=== PATIENT | male | born 1980 | race African-American/Black ===

== ENCOUNTER 2019-05-14 10:56 | Emergency (ER) | payer BC, MEDICAID ==
[~2019-05-14] VITALS: Ht 165.1 cm; Wt 84.0 kg
[~2019-05-14 10:56] MED LIST: [UNRECOGNIZED DRUG - REMARK]
[2019-05-14] MEDS ORDERED: PENICILLIN G BENZATHINE 2,400,000 UNITS/4ML SYR IM ONE (13:00)
[2019-05-14 13:35] VITALS: BP 110/76
== END 2019-05-14 13:30 | disposition left against medical advice (07) ==
LOC: ER 10:56
DX: A51.49 Other secondary syphilitic conditions (principal); F17.200 Nicotine dependence, unspecified, uncomplicated
CPT/HCPCS: 96372; 99283; J0561

== ENCOUNTER 2019-08-29 19:00 | Emergency (ER) | payer BC, MEDICAID ==
[~2019-08-29] VITALS: Ht 162.6 cm; Wt 80.0 kg
[2019-08-29 21:42] VITALS: BP 157/102
[2019-08-29] MEDS ORDERED: TETRACAINE 0.5% OPHTH DROPS 4ML RIGHTEYE ONE (22:15)
[2019-08-29] MEDS ORDERED: FLUORESCEIN SODIUM 1MG/STRIP RIGHTEYE ONE (22:15)
== END 2019-08-29 23:10 | disposition home or self-care (01) ==
LOC: ER 19:00
DX: H10.32 Unspecified acute conjunctivitis, left eye (principal); H01.00B Unspecified blepharitis left eye, upper and lower eyelids
CPT/HCPCS: 99283

== ENCOUNTER 2019-09-07 14:35 | Emergency (ER) | payer BC, MEDICAID ==
[~2019-09-07] VITALS: Ht 162.6 cm; Wt 90.0 kg
[2019-09-07 15:01] VITALS: BP 147/98
[2019-09-07] MEDS ORDERED: TOBRAMYCIN 0.3% OPHTH DROPS 5ML OP SCH (16:00)
== END 2019-09-07 15:12 | disposition home or self-care (01) ==
LOC: ER 14:35
DX: H10.022 Other mucopurulent conjunctivitis, left eye (principal); F17.210 Nicotine dependence, cigarettes, uncomplicated
CPT/HCPCS: 99283

== ENCOUNTER 2019-10-24 21:12 | Emergency (ER) | payer BC, MEDICAID ==
[~2019-10-24] VITALS: Ht 162.6 cm; Wt 82.0 kg
[2019-10-24 21:26] VITALS: BP 159/78
[2019-10-24] MEDS ORDERED: BACITRACIN ZINC OINT UDPKT TOP ONE (22:15)
[2019-10-24] MEDS ORDERED: LIDOCAINE HCL/PF 1% 10 MG/ML 5ML VIAL IJ ONE (22:15)
== END 2019-10-24 23:15 | disposition left against medical advice (07) ==
LOC: ER 21:12
DX: S01.81XA Laceration without foreign body of other part of head, initial encounter (principal); W26.8XXA Contact with other sharp object(s), not elsewhere classified, initial encounter; Y93.89 Activity, other specified; Y92.89 Other specified places as the place of occurrence of the external cause; Y99.8 Other external cause status; F17.290 Nicotine dependence, other tobacco product, uncomplicated
CPT/HCPCS: 12015; 99283; Z7610

== ENCOUNTER 2019-10-30 19:02 | Emergency (ER) | payer BC, MEDICAID ==
[~2019-10-30] VITALS: Ht 162.6 cm; Wt 84.0 kg
[2019-10-30 19:52] VITALS: BP 154/104
== END 2019-10-30 20:08 | disposition home or self-care (01) ==
LOC: ER 19:02
DX: Z48.02 Encounter for removal of sutures (principal)
CPT/HCPCS: 99281

== ENCOUNTER 2021-11-29 07:35 | Emergency (ER) | payer BC, MEDICAID ==
[~2021-11-29] VITALS: Ht 172.7 cm; Wt 75.0 kg
[2021-11-29] MEDS ORDERED: TETANUS, DIPHTHERIA, PERTUSSIS VAC/PF 0.5ML (>10YR OLD) IM ONE (08:15)
[2021-11-29] MEDS ORDERED: IBUPROFEN 600MG TABLET PO ONE (08:15)
[2021-11-29] MEDS ORDERED: IBUP-2028 MT (09:28)
[2021-11-29 09:33] VITALS: BP 137/78
== END 2021-11-29 09:34 | disposition home or self-care (01) ==
LOC: ER 07:48
DX: S63.591A Other specified sprain of right wrist, initial encounter (principal); M25.511 Pain in right shoulder; Z88.0 Allergy status to penicillin; Y35.893A Legal intervention involving other specified means, suspect injured, initial encounter; Y93.89 Activity, other specified; Y92.89 Other specified places as the place of occurrence of the external cause
CPT/HCPCS: 29125; 73030; 73110; 90471; 90715; 99284

== ENCOUNTER 2022-01-01 11:14 | Emergency (ER) | payer OTHER ==
[~2022-01-01] VITALS: Ht 182.9 cm; Wt 72.0 kg
[~2022-01-01 11:14] MED LIST changes: +ACET650T37 MT; +HYDR-4001 MT; +IBUP-2028 MT; +LEVO750T46 MT; +MESA500C PO; +METR-167 MT; -[UNRECOGNIZED DRUG - REMARK]
[2022-01-01 14:37] LABS: EOSINOPHILS % 2.1 % (0.0-5.0); HEMATOCRIT. 41.3 % (42.0-52.0); HEMOGLOBIN. 14.2 g/dL (14.0-18.0); LYMPHOCYTES % 28.8 % (20.0-50.0); MEAN CORPUSCULAR HEMOGLOBIN 30.8 pg (28.0-32.0); MEAN CORPUSCULAR VOLUME 89.6 fL (80.0-94.0); MONOCYTES % 6.9 % (2.0-8.0); NEUTROPHILS % 61.2 % (40.0-76.0); PLATELET 458 x1000/uL (130-400); RED BLOOD CELL COUNT 4.61 mill/uL (4.7-6.1); RED CELL DISTRIBUTION WIDTH 15.6 % (11.6-14.6)
[2022-01-01] MEDS ORDERED: ONDANSETRON HCL 4MG/2ML INJ IV ONE (14:45)
[2022-01-01] MEDS ORDERED: MORPHINE SULFATE 4 MG/ML CPJ (NOT FOR IM USE) IV ONE (14:45)
[2022-01-01 14:49] LABS: CHLORIDE 109 mEq/L (98-107)
[2022-01-01] MEDS ORDERED: IOHEXOL-300 50 ML BOTTLE IV ONE (15:13)
[2022-01-01 16:42] VITALS: BP 123/81
== END 2022-01-01 16:48 | disposition home or self-care (01) ==
LOC: ER 11:14
DX: Z46.89 Encounter for fitting and adjustment of other specified devices (principal); Z88.0 Allergy status to penicillin; Z98.890 Other specified postprocedural states
CPT/HCPCS: 36415; 74176; 80053; 85025; 96374; 96375; 99284; J2270; J2405; Q9967

== ENCOUNTER 2022-01-04 17:27 | Emergency (ER) | payer OTHER ==
[~2022-01-04] VITALS: Ht 177.8 cm; Wt 73.0 kg
[2022-01-04] MEDS ORDERED: ONDANSETRON HCL 4MG/2ML INJ IV STA (17:40)
[2022-01-04] MEDS ORDERED: MORPHINE SULFATE 4 MG/ML CPJ (NOT FOR IM USE) IV STA (17:40)
[2022-01-04] MEDS ORDERED: SODIUM CHLORIDE 0.9% 1000ML BAG (SEPSIS BOLUS) IV ONE (17:45)
[2022-01-04 18:29] LABS: BASOPHILS % 0.9 % (0.0-2.0); EOSINOPHILS % 2.2 % (0.0-5.0); HEMATOCRIT. 39.3 % (42.0-52.0); HEMOGLOBIN. 13.6 g/dL (14.0-18.0); LYMPHOCYTES % 25.3 % (20.0-50.0); MEAN CORPUSCULAR VOLUME 89.7 fL (80.0-94.0); MEAN PLATELET VOLUME 7.2 fl (7.4-10.4); MONOCYTES % 5.6 % (2.0-8.0); PLATELET 394 x1000/uL (130-400); RED BLOOD CELL COUNT 4.38 mill/uL (4.7-6.1)
[2022-01-04 18:46] LABS: CHLORIDE 111 mEq/L (98-107)
[2022-01-04 18:51] LABS: ETHANOL BLOOD 226 mg/dL
[2022-01-04 18:55] LABS: CREATINE KINASE 260 IU/L (39-308)
[2022-01-04] MEDS ORDERED: IOHEXOL-300 100 ML BOTTLE ONE (19:43)
[2022-01-04] MEDS ORDERED: MORPHINE SULFATE 4 MG/ML CPJ (NOT FOR IM USE) IV ONE (20:00)
[2022-01-04 21:13] LABS: CLARITY URINE CLEAR (CLEAR); COLOR URINE YELLOW (YELLOW); KETONES URINE NEGATIVE (NEGATIVE); LEUKOCYTE ESTERASE URINE NEGATIVE (NEGATIVE); NITRITE URINE NEGATIVE (NEGATIVE); OCCULT BLOOD URINE NEGATIVE (NEGATIVE); PROTEIN URINE NEGATIVE (NEGATIVE); SPECIFIC GRAVITY URINE 1.026 (1.005-1.030); UROBILINOGEN URINE 0.2 E.U./dL (0.2-1.0)
[2022-01-04 21:30] LABS: *AMPHETAMINES SCREEN URINE PRESUMTIVE POSITIVE (NEGATIVE); *BARBITURATES SCREEN URINE NEGATIVE (NEGATIVE); *BENZODIAZEPINES SCREEN URINE NEGATIVE (NEGATIVE); *COCAINE SCREEN URINE NEGATIVE (NEGATIVE)
[2022-01-04 21:31] LABS: CANNABINOID URINE SCREEN NEGATIVE (NEGATIVE); METHADONE URINE SCREEN NEGATIVE (NEGATIVE); OPIATES URINE SCREEN PRESUMTIVE POSITIVE (NEGATIVE); PHENCYCLIDINE URINE SCREEN NEGATIVE (NEGATIVE)
[2022-01-04 22:00] VITALS: BP 125/70
[2022-01-04] MEDS ORDERED: ONDA4TAB5 MT (22:04)
[2022-01-04] MEDS ORDERED: HYDR-4001 MT (22:04)
== END 2022-01-04 22:40 | disposition home or self-care (01) ==
LOC: ER 17:27 → CANBEDREQ 01-05 02:02
DX: I10 Essential (primary) hypertension (principal); F10.129 Alcohol abuse with intoxication, unspecified; Y90.7 Blood alcohol level of 200-239 mg/100 ml; R10.11 Right upper quadrant pain; R10.31 Right lower quadrant pain; Z79.899 Other long term (current) drug therapy; Z88.0 Allergy status to penicillin
CPT/HCPCS: 36415; 71045; 74177; 80053; 80305; 80320; 81003; 82550; 83605; 83690; 84145; 84484; 85025; 86140; 87040; 87086; 93005; 96361; 96374; 96375; 96376; 99285; J2270; J2405; J7030; Q9967; G0480